=== PATIENT | female | born 1980 | race Caucasian/White ===

== ENCOUNTER 2017-01-22 14:12 | Observation (INO) | payer SELFPAY ==
[~2017-01-22 14:12] MED LIST: LOPE2TAB3 PO; VIST25CA PO; ZOFR8TAB4 SL
[2017-01-22 14:14] VITALS: BP 120/82; PULSE 110; RESP 24; TEMP 98.4; O2SAT 98
[2017-01-22] MEDS ORDERED: ONDANSETRON HCL 4 MG/2 ML VIAL IVP ONE (16:45)
[2017-01-22] MEDS ORDERED: SODIUM CHLOR 0.9% 1000 ML INJ 1,000 ML IV SCH ×3 (16:45→20:14)
[2017-01-22] MEDS ORDERED: KETOROLAC TROMETHAMINE 30 MG/ML (IVP) VIAL IVP ONE (16:45)
[2017-01-22] MEDS ORDERED: SODIUM CHLORIDE 0.9% FLUSH 10 ML FLUSH IV FLUSH PRN ×2 (16:45→20:15)
[2017-01-22] MEDS ORDERED: MORPHINE SULFATE 4 MG/ML INJ IV PUSH ONE (16:45)
--- NOTE | 2017-01-22 16:53 | PD ---
HPI Chief Complaint: Skin Problem Time Seen by Provider: 16:53 Travel History International Travel<30 days: No Contact w/Intl Traveler<30days: No Traveled to known affect area: No History of Present Illness HPI 36-year-old female with a history of IV drug use presents to the emergency department for evaluation of right hand swelling and pain that began last night and has significantly worsened today. The patient denies any injury or trauma to her finger or hand. States last night she noticed a small bump on the volar aspect of her right hand overlying the MCP and when she woke up this morning the swelling and pain had worsened. States she has significant pain in the right second finger, aggravated with movement. Denies any alleviating factors. Denies fever, chills, nausea, vomiting, numbness or tingling, weakness. Patient has a history of IVDU but denies any recent use. Denies , last menstrual period 1 week ago. No other complaints. PFSH Past Medical History Hx Anticoagulant Therapy: No Anxiety: Yes Depression: Yes Cancer: No Cardiovascular Problems: No Cerebrovascular Accident: No Diabetes: No Diminished Hearing: No Endocrine: No Genitourinary: No Hepatitis: Yes (C) Immune Disorder: No Musculoskeletal: No Neurologic: No Psychiatric: Yes Reproductive: No Respiratory: Yes (Asthma) ?: Not Past Surgical History Appendectomy: Yes Section: Yes (X3) Gynecologic Surgery: Yes (3 c sections) Hysterectomy: No Other Surgery: Yes Social History Alcohol Use: Yes (occ) Tobacco Use: Yes (1 ppd) Substance Use: Yes (HEROIN, cocaine, marajuiana ) Allergies-Medications (Allergen,Severity, Reaction): Coded Allergies: No Known Allergies (Unverified , 06/01/16) Morphine causes severe itching Reported Meds & Prescriptions Reported Meds & Active Scripts Active Vistaril (Hydroxyzine Pamoate) 25 Mg Cap 25 Mg PO Q6H PRN Zofran Odt (Ondansetron Odt) 8 Mg Tab 8 Mg SL Q12HR Review of Systems Except as stated in HPI: all other systems reviewed are Neg Physical Exam Narrative GENERAL: Well-nourished and well-developed pleasant female patient in no acute distress who is nontoxic appearing. SKIN: Warm and dry. HEAD: Normocephalic and atraumatic. EYES: No injection, drainage, or hyphema noted. PERRLA. EOMI. ENT: No nasal drainage noted. Oropharynx is clear. NECK: Supple and the trachea is midline. CARDIOVASCULAR: Regular rate and rhythm. RESPIRATORY: Breath sounds are equal bilaterally with no accessory muscle use, wheezing, rhonchi, or crackles. GASTROINTESTINAL: Abdomen is soft, non-tender, and nondistended. EXTREMITY: Right hand second finger erythematous and swollen from MCP to DIP. Holding second finger in passive flexion. Pain elicited with extension of the finger. No fluctuance or pointing. No discharge or drainage. Full range of motion in all joints. No joint swelling/injury. Normal opposition of thumb. Distal extremity neurovascularly intact with intact two point discrimination. NEUROLOGICAL: Awake, alert, and oriented. Normal speech and gait. Cranial nerves are grossly intact. Data Data Last Documented VS Vital Signs Date Time Temp Pulse Resp B/P Pulse Ox O2 Delivery O2 Flow Rate FiO2 01/22/17 17:41 96 18 01/22/17 17:30 97 Nasal Cannula 2 01/22/17 17:29 121/80 01/22/17 14:14 98.4 Orders Hand, Complete ([id number]) (01/22/17 16:45) Complete Blood Count With Diff (01/22/17 16:45) Comprehensive Metabolic Panel (01/22/17 16:45) Iv Access Insert/Monitor (01/22/17 16:45) Ecg Monitoring (01/22/17 16:45) Oximetry (01/22/17 16:45) Morphine Inj (Morphine Inj) (01/22/17 16:45) Ondansetron Inj (Zofran Inj) (01/22/17 16:45) Sodium Chlor 0.9% 1000 Ml Inj (Ns 1000 M (01/22/17 16:45) Sodium Chloride 0.9% Flush (Ns Flush) (01/22/17 16:45) Ketorolac Inj (Toradol Inj) (01/22/17 16:45) Ed Urine Pregnancytest Poc (01/22/17 16:45) C-Reactive Protein (Crp) (01/22/17 16:45) Westergren Sedimentation Rate (01/22/17 16:45) Vancomycin Inj (Vancomycin Inj) (01/22/17 17:00) Hydromorphone Pf Inj (Dilaudid Pf Inj) (01/22/17 17:30) Us Arm Soft Tissue (01/22/17 ) Consult Hand Surgery (01/22/17 ) Diet Npo (01/22/17 Dinner) Vital Signs (Adult) MONICA.Q4H (01/22/17 18:31) Acetaminophen (Tylenol) (01/22/17 18:45) Ondansetron Inj (Zofran Inj) (01/22/17 18:45) Sodium Chlor 0.9% 1000 Ml Inj (Ns 1000 M (01/22/17 20:00) Admit Order (Ed Use Only) (01/22/17 18:33) Labs Laboratory Tests Test 01/22/17 17:05 White Blood Count 14.4 TH/MM3 Red Blood Count 4.05 MIL/MM3 Hemoglobin 12.1 GM/DL Hematocrit 35.9 % Mean Corpuscular Volume 88.5 FL Mean Corpuscular Hemoglobin 29.8 PG Mean Corpuscular Hemoglobin 33.7 % Concent Red Cell Distribution Width 12.8 % Platelet Count 272 TH/MM3 Mean Platelet Volume 7.6 FL Neutrophils (%) (Auto) 77.2 % Lymphocytes (%) (Auto) 12.8 % Monocytes (%) (Auto) 9.1 % Eosinophils (%) (Auto) 0.8 % Basophils (%) (Auto) 0.1 % Neutrophils # (Auto) 11.1 TH/MM3 Lymphocytes # (Auto) 1.8 TH/MM3 Monocytes # (Auto) 1.3 TH/MM3 Eosinophils # (Auto) 0.1 TH/MM3 Basophils # (Auto) 0.0 TH/MM3 CBC Comment DIFF FINAL Differential Comment Erythrocyte Sedimentation Rate 5 mm/hr Sodium Level 140 MEQ/L Potassium Level 2.9 MEQ/L Chloride Level 105 MEQ/L Carbon Dioxide Level 28.1 MEQ/L Anion Gap 7 MEQ/L Blood Urea Nitrogen 11 MG/DL Creatinine 0.74 MG/DL Estimat Glomerular Filtration 89 ML/MIN Rate Random Glucose 97 MG/DL Calcium Level 8.8 MG/DL Total Bilirubin 0.5 MG/DL Aspartate Amino Transf 36 U/L (AST/SGOT) Alanine Aminotransferase 48 U/L (ALT/SGPT) Alkaline Phosphatase 52 U/L C-Reactive Protein 0.63 MG/DL Total Protein 7.9 GM/DL Albumin 3.6 GM/DL MDM Medical Decision Making Medical Screen Exam Complete: Yes Emergency Medical Condition: Yes Differential Diagnosis Septic arthritis versus flexor tenosynovitis versus cellulitis Narrative Course 36-year-old female presents to the emergency department for evaluation of right hand second finger swelling, redness and pain. Patient is afebrile, vital signs are stable. IV access is obtained, labs drawn and sent. Patient is administered ankle nice 1 g IV, Toradol 30 mg IV and morphine 4 mg IV. CBC shows an elevated white blood cell count 14.4, otherwise unremarkable. CMP shows hypokalemia with potassium of 2.9. CRP is slightly elevated. Sedimentation rate is within normal limits. X-ray of the right hand is negative for any acute abnormalities. Ultrasound imaging shows minimal induration without defined fluid. Patient will be admitted to medicine service with hand surgery consultation for IV antibiotics and potassium replacement. I discussed the case with my attending physician Dr. Lucio who is aware of the patients history, physical examination findings, and treatment plan. Physician Communication Physician Communication I spoke with Dr. Riggins hand surgeon and discussed our concern of possibility of flexor tenosynovitis and septic arthritis. He is aware and requests ultrasound imaging of the hand. He agrees to see the patient in consultation in the morning. I spoke with Dr. Fontaine [facility] who agrees to admit the patient to his service. Diagnosis Primary Impression: Cellulitis of right hand Additional Impressions: IVDU (intravenous drug user) Hypokalemia Admitting Information Admitting Physician Requests: Observation Rosalba Louis Jan 22, 2017 16:53
[2017-01-22] MEDS ORDERED: VANCOMYCIN INJ 1,000 MG in SODIUM CHLOR 0.9% 250 ML INJ 250 ML IV ONE (17:00)
[2017-01-22 17:29] VITALS: BP 121/80; PULSE 98; RESP 18; O2SAT 100
[2017-01-22 17:30] VITALS: O2SAT 97
[2017-01-22] MEDS ORDERED: HYDROmorphone HCL PF 1 MG/ML VIAL IV PUSH ONE (17:30)
[2017-01-22 17:31] LABS: AUTOMATED NEUTROPHIL # 11.1 TH/MM3 (1.8-7.7); BASOPHIL % 0.1 % (0.0-2.0); EOSINOPHIL # 0.1 TH/MM3 (0-0.4); EOSINOPHIL % 0.8 % (0.0-4.0); HEMATOCRIT 35.9 % (35.0-46.0); HEMO FLAGS DIFF FINAL; LYMPH % 12.8 % (9.0-44.0); LYMPHOCYTE # 1.8 TH/MM3 (1.0-4.8); MEAN CELL VOLUME 88.5 FL (80.0-100.0); MEAN CORPUSCULAR HEMOGLOBIN 29.8 PG (27.0-34.0); MEAN CORPUSCULAR HGB CONC 33.7 % (32.0-36.0); MONO % 9.1 % (0.0-8.0); NEUT % 77.2 % (16.0-70.0); PLATELET COUNT 272 TH/MM3 (150-450); RED BLOOD COUNT 4.05 MIL/MM3 (4.00-5.30); RED CELL DISTRIBUTION WIDTH 12.8 % (11.6-17.2); WHITE BLOOD COUNT 14.4 TH/MM3 (4.0-11.0)
--- NOTE | 2017-01-22 17:46 | RADRPT ---
EXAM DATE/TIME: 01/22/2017 17:17 [facility] COMPARISON: No previous studies available for comparison. INDICATIONS : Right hand second MCPJ pain and swelling. MEDICAL HISTORY : None. SURGICAL HISTORY : None. ENCOUNTER: Initial ACUITY: 2 days PAIN SCORE: 10/10 LOCATION: Right hand, 2nd MCP. FINDINGS: No definite fractures, or dislocations are identified. No definite lytic or sclerotic lesion is seen . CONCLUSION: Unremarkable study. Jeremy Joseph MD on January 22, 2017 at 17:42 Board Certified Radiologist. This report was verified electronically.
[2017-01-22 17:54] LABS: ALKALINE PHOSPHATASE 52 U/L (45-117); ALT (GPT) 48 U/L (10-53); ANION GAP 7 MEQ/L (5-15); AST (GOT) 36 U/L (15-37); BICARBONATE 28.1 MEQ/L (21.0-32.0); BLOOD UREA NITROGEN 11 MG/DL (7-18); CHLORIDE 105 MEQ/L (98-107); GLOMERULAR FILTRATION RATE 89 ML/MIN (>89); SODIUM (NA) 140 MEQ/L (136-145); TOTAL BILIRUBIN ADULT 0.5 MG/DL (0.2-1.0)
[2017-01-22 18:08] LABS: POTASSIUM 2.9 MEQ/L (3.5-5.1)
[2017-01-22] MEDS ORDERED: ONDANSETRON HCL 4 MG/2 ML VIAL IV PUSH PRN (18:45)
[2017-01-22] MEDS ORDERED: ACETAMINOPHEN 325 MG TAB PO PRN (18:45)
[2017-01-22] MEDS ORDERED: POTASSIUM CHLOR 20 MEQ PREMIX 100 ML IV SCH (18:45)
--- NOTE | 2017-01-22 18:47 | RADRPT ---
EXAM DATE/TIME: 01/22/2017 18:15 [facility] COMPARISON: No previous studies available for comparison. INDICATIONS : Right hand abscess. MEDICAL HISTORY : Hepatitis C. Asthma. Depression. Substance abuse. SURGICAL HISTORY : section. ENCOUNTER: Initial ACUITY: 1 day PAIN SCORE: 7/10 LOCATION: Right arm. AREA EVALUATED: Right hand/ right index finger. FINDINGS: MASSES: None. FLUID COLLECTIONS: None. OTHER: Negative. CONCLUSION: Minimal induration without defined fluid. Refugio Villela MD FACR on January 22, 2017 at 18:45 Board Certified Radiologist. This report was verified electronically.
[2017-01-22 19:10] VITALS: BP 118/74; PULSE 88; RESP 18; O2SAT 98
[2017-01-22] MEDS ORDERED: NALOXONE HCL 0.4 MG/ML AMP IV PRN (20:15)
[2017-01-22] MEDS ORDERED: Vancomycin Consult Pharmacy 1 EA OTHER SCH (20:30)
[2017-01-22] MEDS ORDERED: SODIUM CHLORIDE 0.9% FLUSH 10 ML FLUSH IV FLUSH SCH (21:00)
[2017-01-22] MEDS ORDERED: PIPERACIL-TAZO 4.5 GM PREMIX 100 ML IV SCH (23:00)
== END 2017-01-22 23:39 | disposition left against medical advice (07) ==
LOC: NEPD 14:12 → INTOOBSV 18:36 → NEDA 18:36 → NEPGCP 21:51
PROVIDERS: ADMIT Internal Medicine; ATTEND Internal Medicine
DX: L03.113 Cellulitis of right upper limb (principal); E87.6 Hypokalemia; F41.9 Anxiety disorder, unspecified; B19.20 Unspecified viral hepatitis C without hepatic coma; J45.909 Unspecified asthma, uncomplicated; F17.200 Nicotine dependence, unspecified, uncomplicated; F14.90 Cocaine use, unspecified, uncomplicated; F12.90 Cannabis use, unspecified, uncomplicated; F11.90 Opioid use, unspecified, uncomplicated
CPT/HCPCS: 73130; 76882; 80053; 84703; 85025; 85652; 86140; 96365; 96375; 99285; G0378; J1170; J1885; J2405; J3370; J3480; J7030; J7050